=== PATIENT | male | born 1945 | race Caucasian/White ===

== ENCOUNTER 2018-01-24 08:01 | Emergency (ER) | payer MEDICARE, OTHER ==
[~2018-01-24 08:01] MED LIST: Adult Low Dose81 MG PO; DULO60 PO; LISI20 PO; OXYC30 PO
[2018-01-24] MEDS ORDERED: MINO100 PO (15:38)
== END 2018-01-24 08:39 | disposition left against medical advice (07) ==
LOC: ER 08:01
DX: Z53.21 Procedure and treatment not carried out due to patient leaving prior to being seen by health care provider (principal)

== ENCOUNTER 2018-01-24 12:24 | Emergency (ER) | payer MEDICARE, OTHER ==
[~2018-01-24] VITALS: Ht 175.3 cm; Wt 94.8 kg
[2018-01-24 14:52] LABS: BASOPHILS ABSOLUTE AUTO 0.02 K/mm3 (0.00-0.23); BASOPHILS PERCENT AUTO 0 % (0-2); EOSINOPHILS PERCENT AUTO 0 % (0-6); Hematocrit 40.3 % (37.0-53.0); IMMATURE GRAN ABSOLUTE AUTO 0.05 K/mm3 (0.00-0.10); IMMATURE GRAN PERCENT AUTO 0 % (0-1); LYMPHOCYTES ABSOLUTE AUTO 1.05 K/mm3 (0.84-5.20); LYMPHOCYTES PERCENT AUTO 8 % (21-46); MONOCYTES ABSOLUTE AUTO 0.93 K/mm3 (0.16-1.47); MONOCYTES PERCENT AUTO 7 % (4-13); Mean Corpuscular HGB 27.1 pg (26.0-34.0); Mean Corpuscular HGB Conc 32.3 g/dL (31.5-36.5); Mean Corpuscular Volume 84 fL (80-100); Mean Platelet Volume 9.6 fL (9.1-12.4); NEUTROPHILS ABSOLUTE AUTO 10.48 K/mm3 (1.96-9.15); NEUTROPHILS PERCENT AUTO 84 % (41-73); Platelet Count 310 K/mm3 (150-400); RDW Coefficient Variation 14.3 % (11.7-14.2); RDW Standard Deviation 43.8 fL (35.1-46.3); White Blood Cell Count 12.53 K/mm3 (4.00-11.30)
[2018-01-24 15:09] LABS: Alanine Aminotransfer (ALT/SGP 17 U/L (12-78); Albumin, Blood 3.9 g/dL (3.4-5.0); Albumin/Globulin Ratio 0.8 (0.8-1.8); Alk Phos 82 U/L (50-136); Anion Gap 8 mmol/L (6-16); Aspartate Aminotrans (AST/SGOT 16 U/L (12-37); Bilirubin, Total 0.8 mg/dL (0.1-1.0); Blood Urea Nitrogen 14 mg/dL (8-24); Bun/Creatinine Ratio 19.3 (12.0-20.0); CO2, Blood 27 mmol/L (21-32); Calcium, Blood 9.1 mg/dL (8.5-10.1); Chloride, Blood 99 mmol/L (98-108); Creatinine, Blood 0.73 mg/dL (0.60-1.20); Globulin, Blood 4.9 g/dL (2.2-4.0); Glomerular Filtration Rate >60 (60-); Glucose, Blood 115 mg/dL (70-99); Potassium, Blood 3.6 mmol/L (3.5-5.5); Sodium, Blood 134 mmol/L (136-145); Total Protein, Blood 8.8 g/dL (6.4-8.2)
[2018-01-24] MEDS ORDERED: MINO100 PO (15:38)
== END 2018-01-24 16:39 | disposition home or self-care (01) ==
LOC: ER 12:24
PROVIDERS: Emergency Medicine
DX: L03.113 Cellulitis of right upper limb (principal); I89.1 Lymphangitis; G89.29 Other chronic pain; I10 Essential (primary) hypertension; Z79.899 Other long term (current) drug therapy; Z79.82 Long term (current) use of aspirin; Z87.891 Personal history of nicotine dependence
CPT/HCPCS: 72040; 72220; 73100; 73110; 80053; 85025; 96365; 99283; J3370; J7030; J7050

== ENCOUNTER 2018-01-24 23:42 | Emergency (ER) | payer MEDICARE, OTHER ==
[~2018-01-24] VITALS: Ht 175.3 cm; Wt 90.7 kg
[~2018-01-24 23:42] MED LIST changes: +MINO100 PO
== END 2018-01-25 01:26 | disposition home or self-care (01) ==
LOC: ER 23:42
DX: L03.113 Cellulitis of right upper limb (principal); I10 Essential (primary) hypertension; Z79.899 Other long term (current) drug therapy; Z79.82 Long term (current) use of aspirin
CPT/HCPCS: 96365; 99282; J3370

== ENCOUNTER 2018-01-25 00:31 | Day surgery (SDC) | payer MEDICARE, OTHER | END 2018-01-25 14:27 | disposition home or self-care (01) | LOC: ATC 00:31 | DX: L03.113 Cellulitis of right upper limb (principal) | CPT/HCPCS: 96365; 99282; J3370 ==

== ENCOUNTER 2021-09-29 08:00 | Day surgery (SDC) | payer MEDICARE, OTHER ==
[~2021-09-29] VITALS: Ht 170.2 cm; Wt 68.0 kg
[~2021-09-29 08:00] MED LIST changes: +METO25 PO; +MULVITA PO; +NITR.4SL SL; +OXYC30ER
--- NOTE | 2021-09-29 18:22 | NUR ---
SHIFT SUMMARY PT A&OX4, VSS, S/P R TKA, AQUACEL CDI, POLAR LACHO ON. PAIN TREATED PER EMAR. SANTOS PO. AWAITING POST-OP VOID. WILL REPORT TO ONCOMING NOC DREAD.
[2021-09-29] MEDS ORDERED: OXYC10TA19 PO (19:55)
[2021-09-29] MEDS ORDERED: PRAV20 PO (21:49)
[2021-09-30 05:03] LABS: BASOPHILS ABSOLUTE AUTO 0.02 K/mm3 (0.00-0.23); BASOPHILS PERCENT AUTO 0 % (0-2); EOSINOPHILS ABSOLUTE AUTO 0.01 K/mm3 (0.00-0.68); EOSINOPHILS PERCENT AUTO 0 % (0-6); Hematocrit 28.3 % (37.0-53.0); Hemoglobin 8.9 g/dL (13.5-17.5); IMMATURE GRAN ABSOLUTE AUTO 0.13 K/mm3 (0.00-0.10); IMMATURE GRAN PERCENT AUTO 1 % (0-1); LYMPHOCYTES PERCENT AUTO 9 % (21-46); MONOCYTES ABSOLUTE AUTO 1.09 K/mm3 (0.16-1.47); MONOCYTES PERCENT AUTO 7 % (4-13); Mean Corpuscular HGB 27.1 pg (26.0-34.0); Mean Corpuscular HGB Conc 31.4 g/dL (31.5-36.5); Mean Corpuscular Volume 86 fL (80-100); Mean Platelet Volume 9.4 fL (9.1-12.4); NEUTROPHILS ABSOLUTE AUTO 12.56 K/mm3 (1.96-9.15); NEUTROPHILS PERCENT AUTO 83 % (41-73); Platelet Count 488 K/mm3 (150-400); RDW Coefficient Variation 13.5 % (11.7-14.2); RDW Standard Deviation 42.2 fL (35.1-46.3); Red Blood Cell Count 3.29 M/mm3 (4.30-5.90); White Blood Cell Count 15.11 K/mm3 (4.00-11.30)
[2021-09-30 05:58] LABS: Bun/Creatinine Ratio 24.6 (12.0-20.0); Calcium, Blood 8.5 mg/dL (8.5-10.1); Creatinine, Blood 1.3 mg/dL (0.60-1.20); Magnesium, Blood 1.7 mg/dL (1.6-2.4); Potassium, Blood 4.8 mmol/L (3.5-5.5)
--- NOTE | 2021-09-30 06:20 | NUR ---
SHIFT SUMMARY INITIALLY, PT WAS UPSET ABOUT PAIN MANAGEMENT HE TAKES HIGH DOSE OF SCHEDULED OXYCODONE & IS ON A PAIN CONTRACT. DR CHOI CALLED & NEW ORDERS RECEIVED. UNFORTUNATLY DUE TO SPINAL LASTING, PT HAS NOT BEEN UP TO AMBULATE. FIRST ATTEMPT AROUND 2100, PT's SURGICAL LEG WAS UNABLE TO BEAR WEIGHT WITHOUT BUCKLING. DURING ASSESSMENTS AROUND 1500, PT STILL HAD NUMBNESS & "LACK OF SENSATION" FROM ANKLE DOWN. SHORTLY AGO, PT WAS TRANSFERRED TO CHAIR BUT STILL DID POORLY DUE TO FEELING IF HIS SURGICAL LEG WAS STILL HEAVY, STIFF, & ANKLE/FOOT AREA STILL NUMB. VSS.
[2021-09-30] MEDS ORDERED: OXYC15ER PO (13:56)
--- NOTE | 2021-09-30 16:19 | NUR ---
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 IV DC'D.
== END 2021-09-30 15:01 | disposition home or self-care (01) ==
LOC: ORSCMMR 08:00 → ORD 09:30 → ORSCMMR 09:30 → SURS 15:28 → ORSCMMR 09-30 15:01
PROVIDERS: Orthopaedic Surgery
PROC: 0SRC0JA Replacement of Right Knee Joint with Synthetic Substitute, Uncemented, Open Approach (ICD-10-PCS; principal; 2021-09-29 10:30)
PROC: 8E0Y0CZ Robotic Assisted Procedure of Lower Extremity, Open Approach (ICD-10-PCS; principal; 2021-09-29 10:30)
DX: M17.11 Unilateral primary osteoarthritis, right knee (principal); I10 Essential (primary) hypertension; Z87.891 Personal history of nicotine dependence; Z79.899 Other long term (current) drug therapy; I50.9 Heart failure, unspecified
CPT/HCPCS: 27447; S2900; 36415; 73560-RT; 80048; 83735; 85025; 97110; 97116; 97162; A9270; C1713; C1776; J0171; J0690; J0735; J1100; J1885; J2250; J2405; J2704; J2795; J3010; J7120

== ENCOUNTER 2022-02-23 08:34 | Day surgery (SDC) | payer MEDICARE, OTHER ==
[2022-02-11 16:16] LABS: BASOPHILS ABSOLUTE AUTO 0.02 K/mm3 (0.00-0.23); BASOPHILS PERCENT AUTO 0 % (0-2); EOSINOPHILS PERCENT AUTO 2 % (0-6); Hematocrit 39.3 % (37.0-53.0); Hemoglobin 12.5 g/dL (13.5-17.5); IMMATURE GRAN ABSOLUTE AUTO 0.01 K/mm3 (0.00-0.10); IMMATURE GRAN PERCENT AUTO 0 % (0-1); LYMPHOCYTES ABSOLUTE AUTO 1.96 K/mm3 (0.84-5.20); LYMPHOCYTES PERCENT AUTO 29 % (21-46); MONOCYTES ABSOLUTE AUTO 0.42 K/mm3 (0.16-1.47); MONOCYTES PERCENT AUTO 6 % (4-13); Mean Corpuscular HGB 26.8 pg (26.0-34.0); Mean Corpuscular HGB Conc 31.8 g/dL (31.5-36.5); Mean Corpuscular Volume 84 fL (80-100); Mean Platelet Volume 10.4 fL (9.1-12.4); NEUTROPHILS ABSOLUTE AUTO 4.37 K/mm3 (1.96-9.15); NEUTROPHILS PERCENT AUTO 64 % (41-73); Platelet Count 265 K/mm3 (150-400); RDW Coefficient Variation 13.9 % (11.7-14.2); RDW Standard Deviation 42.9 fL (35.1-46.3); Red Blood Cell Count 4.66 M/mm3 (4.30-5.90); White Blood Cell Count 6.88 K/mm3 (4.00-11.30)
[2022-02-11 18:04] LABS: Anion Gap 4 mmol/L (6-16); Blood Urea Nitrogen 21 mg/dL (8-24); Bun/Creatinine Ratio 23.3 (12.0-20.0); CO2, Blood 28 mmol/L (21-32); Calcium, Blood 9.4 mg/dL (8.5-10.1); Chloride, Blood 104 mmol/L (98-108); Glomerular Filtration Rate >60 (60-); Glucose, Blood 115 mg/dL (70-99); Potassium, Blood 4.3 mmol/L (3.5-5.5); Sodium, Blood 136 mmol/L (136-145)
[~2022-02-23] VITALS: Ht 170.2 cm; Wt 73.4 kg
[~2022-02-23 08:34] MED LIST changes: +ASPI81CH PO; +OXYC10TA19 PO; +OXYC15ER PO; +PRAV20 PO
--- NOTE | 2022-02-23 09:03 | NUR ---
Ambulatory in Day Surgery WITH WALKER AND CANE, WILL PLACE NAME BANDS ON WALKER AND CANE. History, Chart, Medications and Allergies reviewed before start of procedure.Lungs clear T/O to Auscultation. Patient confirms NPO status and agrees with scheduled surgery. Pre-Op teaching done. Pt verbalizes understanding.
--- NOTE | 2022-02-23 18:14 | NUR ---
SHIFT SUMMARY: PT ARRIVED TO THE UNIT AROUND 1440. COMPLAINING OF PAIN >10 TO LOWER BACK AND LLE. PAIN CONTINUES EVEN AFTER PO AND IV PAIN MEDICATION. WORKED WITH THERAPY. NO DRAINAGE TO LK. EATING, DRINKING, VOIDING.
--- NOTE | 2022-02-24 05:05 | NUR ---
SHIFT SUMMARY NO ACUTE CHANGES OVERNIGHT. PT REPORTS CHRONIC BACK PAIN AND L KNEE PAIN. POD1 L TKA WITH DR. CHOI. PT REPORTS CHRONING N/T, NOTHING MORE THAN UNSUAL. ENC USE OF CRYO. PAIN MANAGED WITH DILAUDID, YVROSE, TYLENOL, AND OXYCOTIN. PT REPORT MOD TO SEVERE PAIN BUT APPEARS TO BE COMFORTABLE OVERNIGHT. L KNEE [employer]GICAL INC SITE AND DRESSING APPEARS TO BE CDI. SALINE LOCK. MILDY HYPOTENSIVE THIS MORNING BUT ASYMPTOMATIC. PLAN FOR PT TO WORK WITH THERAPY BEFORE DISCHARGE. WILL PROVIDE REPORT TO ONCOMING NURSE.
[2022-02-24 05:09] LABS: BASOPHILS ABSOLUTE AUTO 0.01 K/mm3 (0.00-0.23); BASOPHILS PERCENT AUTO 0 % (0-2); EOSINOPHILS ABSOLUTE AUTO 0.01 K/mm3 (0.00-0.68); EOSINOPHILS PERCENT AUTO 0 % (0-6); Hematocrit 30.3 % (37.0-53.0); Hemoglobin 9.7 g/dL (13.5-17.5); IMMATURE GRAN ABSOLUTE AUTO 0.06 K/mm3 (0.00-0.10); IMMATURE GRAN PERCENT AUTO 0 % (0-1); LYMPHOCYTES ABSOLUTE AUTO 1.04 K/mm3 (0.84-5.20); LYMPHOCYTES PERCENT AUTO 7 % (21-46); MONOCYTES ABSOLUTE AUTO 0.94 K/mm3 (0.16-1.47); MONOCYTES PERCENT AUTO 7 % (4-13); Mean Corpuscular HGB 27.7 pg (26.0-34.0); Mean Corpuscular Volume 87 fL (80-100); NEUTROPHILS ABSOLUTE AUTO 11.95 K/mm3 (1.96-9.15); NEUTROPHILS PERCENT AUTO 85 % (41-73); Platelet Count 220 K/mm3 (150-400); RDW Coefficient Variation 14.1 % (11.7-14.2); RDW Standard Deviation 44.6 fL (35.1-46.3); White Blood Cell Count 14.01 K/mm3 (4.00-11.30)
[2022-02-24 05:54] LABS: Bun/Creatinine Ratio 22.6 (12.0-20.0); Calcium, Blood 8.4 mg/dL (8.5-10.1); Creatinine, Blood 1.33 mg/dL (0.60-1.20); Potassium, Blood 5.6 mmol/L (3.5-5.5)
[2022-02-24] MEDS ORDERED: ACET500 PO (09:27)
--- NOTE | 2022-02-24 10:00 | NUR ---
DISCUSSED DC EDUCATION. AWAITING RIDE.
--- NOTE | 2022-02-24 12:04 | NUR ---
DISCHARGE PT HAS CLEARED THERAPY. PAIN POORLY CONTROLLED; BASELINE PT TAKES NARCOTICS ROUTINELY. PT FEELS OK w/ DC DISPITE POOR PAIN MANAGEMENT. EATING, DRINKING, & VOIDING WELL. SCRIPT & POLAR PACK SENT w/ PT. ESCORTED OUT VIA W/C.
== END 2022-02-24 11:50 | disposition home or self-care (01) ==
LOC: ORSCMMR 08:34 → EDSTATUS 10:45 → ORSCMMR 10:45 → EDSTATUS 11:00 → ORSCMMR 11:00 → SURS 14:28 → ORSCMMR 02-24 11:50
PROVIDERS: Orthopaedic Surgery
PROC: 0SRD0JA Replacement of Left Knee Joint with Synthetic Substitute, Uncemented, Open Approach (ICD-10-PCS; principal; 2022-02-23 10:45)
DX: M17.12 Unilateral primary osteoarthritis, left knee (principal); Z96.651 Presence of right artificial knee joint; I10 Essential (primary) hypertension; I50.9 Heart failure, unspecified; I27.20 Pulmonary hypertension, unspecified; E78.5 Hyperlipidemia, unspecified; Z87.891 Personal history of nicotine dependence; Z79.899 Other long term (current) drug therapy; Z79.82 Long term (current) use of aspirin
CPT/HCPCS: 36415; 73560-LT; 80048; 83735; 85025; 97110; 97116; 97162; A9270; C1713; C1776; J0171; J0690; J0735; J1170; J1885; J2250; J2370; J2704; J2795; J3010; J7120

== ENCOUNTER 2025-01-09 12:34 | Inpatient (IN) | payer MEDICARE, OTHER ==
[~2025-01-09] VITALS: Ht 175.3 cm; Wt 67.9 kg
[~2025-01-09 12:34] MED LIST changes: +ACET500 PO
[2025-01-09] MEDS ORDERED: HYDROmorphone HCl/Pf 1MG SYR IV ONE (13:45)
[2025-01-09] MEDS ORDERED: Ondansetron HCl 2 MG / ML 2ML Vial IV ONE (13:45)
[2025-01-09 14:28] LABS: BASOPHILS ABSOLUTE AUTO 0.03 K/mm3 (0.00-0.23); BASOPHILS PERCENT AUTO 0 % (0-2); EOSINOPHILS ABSOLUTE AUTO 0.04 K/mm3 (0.00-0.68); EOSINOPHILS PERCENT AUTO 0 % (0-6); Hematocrit 36.4 % (37.0-53.0); Hemoglobin 11.9 g/dL (13.5-17.5); IMMATURE GRAN ABSOLUTE AUTO 0.06 K/mm3 (0.00-0.10); IMMATURE GRAN PERCENT AUTO 1 % (0-1); LYMPHOCYTES ABSOLUTE AUTO 0.67 K/mm3 (0.84-5.20); LYMPHOCYTES PERCENT AUTO 6 % (21-46); MONOCYTES ABSOLUTE AUTO 0.76 K/mm3 (0.16-1.47); MONOCYTES PERCENT AUTO 7 % (4-13); Mean Corpuscular HGB 28.9 pg (26.0-34.0); Mean Corpuscular HGB Conc 32.7 g/dL (31.5-36.5); Mean Corpuscular Volume 88 fL (80-100); NEUTROPHILS ABSOLUTE AUTO 8.88 K/mm3 (1.96-9.15); NEUTROPHILS PERCENT AUTO 85 % (41-73); RDW Coefficient Variation 13.2 % (11.7-14.2); RDW Standard Deviation 42.7 fL (35.1-46.3); Red Blood Cell Count 4.12 M/mm3 (4.30-5.90); White Blood Cell Count 10.44 K/mm3 (4.00-11.30)
[2025-01-09 14:38] LABS: Albumin, Blood 3.3 g/dL (3.4-5.0); Albumin/Globulin Ratio 0.6 (0.8-1.8); Bilirubin, Total 0.9 mg/dL (0.1-1.0); Bun/Creatinine Ratio 28.6 (12.0-20.0); Calcium, Blood 9.7 mg/dL (8.5-10.1); Creatinine, Blood 1.12 mg/dL (0.60-1.20); Globulin, Blood 5.1 g/dL (2.2-4.0); Potassium, Blood 4.2 mmol/L (3.5-5.5); Total Protein, Blood 8.4 g/dL (6.4-8.2)
[2025-01-09 14:57] LABS: Mean Platelet Volume 10.3 fL (9.1-12.4); Platelet Count 305 K/mm3 (150-400)
[2025-01-09] MEDS ORDERED: FLU VACC TS2024-25(6MOS UP)/PF 45 MCG/0.5 ML SYRINGE IM SCH (16:25)
[2025-01-09] MEDS ORDERED: OxyCODONE HCL 30 MG TAB (Immediate Release) PO PRN (16:40)
[2025-01-09] MEDS ORDERED: Morphine Sulfate 4 MG/1 ML Injection IV PRN (16:40)
[2025-01-09] MEDS ORDERED: CeFAZolin Sodium 2,000 MG in NS 100 ML IV SCH (16:45)
[2025-01-09] MEDS ORDERED: Tranexamic Acid 100 ML IV SCH (16:45)
[2025-01-09] MEDS ORDERED: Docusate Sodium/Senna 1 Tab PO PRN (16:50)
[2025-01-09 19:24] VITALS: BP 157/81
--- NOTE | 2025-01-09 20:00 | NUR ---
ARRIVAL TO SURGICAL UNIT ROOM 212 FROM ER AT 1848. PT ARRIVED TO UNIT VIA GURNEY, TRANSFERED TO HOSPITAL BED VIA SLIDER SHEET. PT VERBALIZED PAIN 10/10 IN LEFT SIDE NECK, SHOULDER, WRIST, HIP AND LEG. PT FOLLOWS DIRECTIONS AND VERBALLY RESPONSIVE. ORIENTED TO ROOM AND CALL LIGHT.
[2025-01-10] VITALS (22 sets, daily range): BP systolic 97–147; BP diastolic 54–82
[2025-01-10] MEDS ORDERED: Acetaminophen 500 MG Tab PO SCH
--- NOTE | 2025-01-10 03:39 | NUR ---
CALL TO HOSPITALIST. CALL PLACED REGARDING FLUID ORDERS AND ORDERS FOR SCDS PT TOO PAINFUL FOR NANY MELLO WITH FX. NEW ORDERS RECEIVED FOR NS 75ML X1 1000ML BAG AND SCDS.
[2025-01-10] MEDS ORDERED: NS 1,000 ML IV SCH (03:40)
[2025-01-10 05:47] LABS: BASOPHILS ABSOLUTE AUTO 0.03 K/mm3 (0.00-0.23); BASOPHILS PERCENT AUTO 0 % (0-2); EOSINOPHILS ABSOLUTE AUTO 0.23 K/mm3 (0.00-0.68); EOSINOPHILS PERCENT AUTO 3 % (0-6); Hematocrit 33.9 % (37.0-53.0); IMMATURE GRAN ABSOLUTE AUTO 0.06 K/mm3 (0.00-0.10); IMMATURE GRAN PERCENT AUTO 1 % (0-1); LYMPHOCYTES ABSOLUTE AUTO 1.25 K/mm3 (0.84-5.20); LYMPHOCYTES PERCENT AUTO 14 % (21-46); MONOCYTES PERCENT AUTO 9 % (4-13); Mean Corpuscular HGB 28.6 pg (26.0-34.0); Mean Corpuscular HGB Conc 32.4 g/dL (31.5-36.5); Mean Corpuscular Volume 88 fL (80-100); NEUTROPHILS ABSOLUTE AUTO 6.59 K/mm3 (1.96-9.15); NEUTROPHILS PERCENT AUTO 74 % (41-73); Platelet Count 282 K/mm3 (150-400); RDW Coefficient Variation 13.6 % (11.7-14.2); RDW Standard Deviation 43.9 fL (35.1-46.3); Red Blood Cell Count 3.85 M/mm3 (4.30-5.90); White Blood Cell Count 8.96 K/mm3 (4.00-11.30)
--- NOTE | 2025-01-10 06:01 | NUR ---
SHIFT SUMMARY NOC. PT A/O X3-4, MINIMALLY FORGETFUL THIS SHIFT. BED ALARM SET FOR SAFETY. PT ADMIT POST FALL AND LEFT FEMORAL FRACTURE. PT PAINFUL UPON ARRIVAL REPORTED RELIEF WITH MORPHINE. PT RESTED WITH EYES CLOSED. AT MORNING VITALS PT STATED DID NOT SLEEP WELL AND WAS PAINFUL. PT VOIDING AND NPO SINCE 0000. PT UPSET THIS MORNING WANTING ICE CHIPS, EDUCATION PROVIDED ON NPO STATUS, PROVIDED ORAL CARE. CALL LIGHT IN REACH. WILL GIVE REPORT TO ONCOMING NURSE.
[2025-01-10 06:28] LABS: Magnesium, Blood 2.1 mg/dL (1.6-2.4); Phosphorus, Blood 3.2 mg/dL (2.5-4.9)
[2025-01-10] MEDS ORDERED: Enoxaparin 40 MG/0.4 ML SYR SC SCH (09:00)
[2025-01-10] MEDS ORDERED: Lisinopril 20 MG Tab PO SCH (09:00)
[2025-01-10] MEDS ORDERED: Aspirin 81 MG Chew PO SCH (09:00)
[2025-01-10] MEDS ORDERED: Multivitamins 1 Tab PO SCH (09:00)
[2025-01-10] MEDS ORDERED: OxyCODONE HCL 30 MG TAB (Immediate Release) PO PRN (09:30)
[2025-01-10] MEDS ORDERED: Morphine Sulfate 4 MG/1 ML Injection IV PRN (09:30)
[2025-01-10] MEDS ORDERED: propofoL 20 ML IV ONE (11:26)
[2025-01-10] MEDS ORDERED: FentaNYL Citrate 50 MCG/ML 2 ML Injection ONE ×3 (11:26→14:43)
[2025-01-10] MEDS ORDERED: Lidocaine HCl 2% 20 ML MDV ONE (11:27)
[2025-01-10] MEDS ORDERED: SuccINYLCHOLINE Chloride 100 MG/5 ML 5MLSYR ONE (11:27)
[2025-01-10] MEDS ORDERED: CeFAZolin Sodium 2,000 MG in NS 100 ML IV SCH ×2 (11:40→20:30)
[2025-01-10] MEDS ORDERED: Lactated Ringer's 1,000 ML IV SCH (11:40)
[2025-01-10] MEDS ORDERED: CeFAZolin Sodium 2,000 MG VIAL ONE (11:46)
[2025-01-10] MEDS ORDERED: Ropivacaine 0.5% HCL/PF 5 MG/ML 30ML Vial ONE (11:54)
[2025-01-10] MEDS ORDERED: Tranexamic Acid 100 ML IV SCH (12:01)
[2025-01-10] MEDS ORDERED: Phenylephrine HCl 100 MCG/ML-NS 10MLSYR (1MG/10ML) ONE ×2 (12:42→12:54)
[2025-01-10] MEDS ORDERED: Dexamethasone Sod Phos 10 MG/ML 1ML VIAL ONE (13:03)
[2025-01-10] MEDS ORDERED: Ondansetron HCl 2 MG / ML 2ML Vial ONE (13:03)
--- NOTE | 2025-01-10 13:14 | NUR ---
01/10/25 1314 Amena,Hannah FASCIA ILIACA BLOCK COMPLETED BY UPON ENTRY TO OR, AFTER PATIENT WAS INTUBATED AND SEDATED.
[2025-01-10] MEDS ORDERED: FentaNYL Citrate 50 MCG/ML 2 ML Injection IV PRN (13:15)
[2025-01-10] MEDS ORDERED: Ondansetron HCl 2 MG / ML 2ML Vial IV PRN (13:15)
[2025-01-10] MEDS ORDERED: HYDROmorphone HCl 0.5 MG/0.5 ML SYR IV PRN ×2 (13:15)
--- NOTE | 2025-01-10 15:33 | NUR ---
POST OP RETURN TO SURGICAL UNIT VIA HOSPITAL BED, ALERT & PLEASANT. ASKING FOR ICE CHIPS. LUNGS CLEAR BUT DIM IN BASES. L HIP w/ AQUACEL; NO DRNG OR BRUISING. THIGH SOFT. PPP.
--- NOTE | 2025-01-10 17:54 | NUR ---
SHIFT SUMMARY S/P L VINNIE HIP PT BACK FROM PROCEDURE, DRESSING CDI. PAIN MANAGED PER EMAR. TOLERATING DIET AND PO. VOIDING WITH URINAL. CURRENTLY RESTING IN BED. ON ROOM AIR, DENIES SOB. PLAN WILL BE TO WORK WITH THERAPY IN THE AM.
[2025-01-11 00:13] VITALS: BP 105/64
--- NOTE | 2025-01-11 01:40 | NUR ---
REPORT GIVEN TO ANA LAURA Pineda RN AT 0110. PT A/O X4 THIS SHIFT, NOT YET OOB POST OP. PT HAVING INCONT/CONT VOIDS WITH URINAL. PT DISLIKES HIP PRECAUTIONS WEDGE, READJUSTED WEDGE AND PT TOLERATES BETTER. AQUACEL ON LEFT HIP C/D/I. PT MEDICATED FOR PAIN OXY 30MG Q 4HRS. CONT BIOX IN PLACE. CALL LIGHT IN REACH, BED ALARM SET FOR SAFETY PT INTERMITTENTLY FORGETFUL.
[2025-01-11 04:03] VITALS: BP 117/64
--- NOTE | 2025-01-11 06:17 | NUR ---
NOC SUMMARY- PT PAIN MANGED WELL. PT HAS BEEN RESTING FOR MOST OF SHIFT. PT IS EATING AND DRINKING. PT VOIDING. DRESSING C/D/I. CALL LIGHT IN REACH.
[2025-01-11 07:10] VITALS: BP 126/74
[2025-01-11] MEDS ORDERED: Enoxaparin 40 MG/0.4 ML SYR SC SCH (09:00)
[2025-01-11] MEDS ORDERED: Methyl Salicylate/Menth/Camph 57 GM TUBE TOP PRN (13:50)
[2025-01-11 15:01] VITALS: BP 113/60
[2025-01-11 19:53] VITALS: BP 118/80
[2025-01-12 03:39] VITALS: BP 126/72
--- NOTE | 2025-01-12 05:09 | NUR ---
SHIFT SUMMARY POD 1 S/P LEFT VINNIE HIP. POSTERIOR HIP PRECAUTIONS MAINTAINED. DRESSING CDI. POLAR PACK TO LEFT HIP TOLERATED. PT UP IN CHAIR T/O SHIFT REQUESTED FOR COMFORT. LEFT HIP PAIN MANAGED PER EMAR. PT REPORTS INCREASED PAIN IN LEFT SHOULDER TONIGHT. IS VOIDING. SANTOS PO INTAKE. PLAN TO WORK WITH THERAPY TODAY. PT A/OX4 WITH VSS AND ABLE TO MAKE NEEDS KNOWN. WILL GIVE REPORT TO ONCOMING RN.
[2025-01-12 05:16] LABS: BASOPHILS ABSOLUTE AUTO 0.02 K/mm3 (0.00-0.23); BASOPHILS PERCENT AUTO 0 % (0-2); EOSINOPHILS ABSOLUTE AUTO 0.16 K/mm3 (0.00-0.68); EOSINOPHILS PERCENT AUTO 2 % (0-6); Hematocrit 29.4 % (37.0-53.0); Hemoglobin 9.4 g/dL (13.5-17.5); IMMATURE GRAN ABSOLUTE AUTO 0.06 K/mm3 (0.00-0.10); IMMATURE GRAN PERCENT AUTO 1 % (0-1); LYMPHOCYTES ABSOLUTE AUTO 1.91 K/mm3 (0.84-5.20); LYMPHOCYTES PERCENT AUTO 19 % (21-46); MONOCYTES ABSOLUTE AUTO 0.82 K/mm3 (0.16-1.47); MONOCYTES PERCENT AUTO 8 % (4-13); Mean Corpuscular HGB 28.2 pg (26.0-34.0); Mean Corpuscular Volume 88 fL (80-100); Mean Platelet Volume 9.9 fL (9.1-12.4); NEUTROPHILS ABSOLUTE AUTO 6.97 K/mm3 (1.96-9.15); NEUTROPHILS PERCENT AUTO 70 % (41-73); Platelet Count 279 K/mm3 (150-400); RDW Coefficient Variation 13.6 % (11.7-14.2); RDW Standard Deviation 44.5 fL (35.1-46.3); Red Blood Cell Count 3.33 M/mm3 (4.30-5.90); White Blood Cell Count 9.94 K/mm3 (4.00-11.30)
[2025-01-12 05:42] LABS: Albumin, Blood 2.3 g/dL (3.4-5.0); Anion Gap 9 mmol/L (3-11); Blood Urea Nitrogen 43 mg/dL (8-24); Bun/Creatinine Ratio 40.6 (12.0-20.0); CO2, Blood 25 mmol/L (21-32); Calcium, Blood 7.9 mg/dL (8.5-10.1); Chloride, Blood 105 mmol/L (98-108); Creatinine, Blood 1.06 mg/dL (0.60-1.20); Glomerular Filtration Rate 71 (60-); Glucose, Blood 119 mg/dL (70-99); Phosphorus, Blood 1.8 mg/dL (2.5-4.9); Potassium, Blood 4.5 mmol/L (3.5-5.5); Sodium, Blood 134 mmol/L (136-145)
[2025-01-12 07:41] VITALS: BP 113/67
[2025-01-12] MEDS ORDERED: DOCUSATE/SENNA PO (12:13)
--- NOTE | 2025-01-12 15:48 | NUR ---
DISCHARGE: PACKET PRINTED AND PT /PT FAMILY EDUCATED. IV DC'D WNL, TIP INTACT. THIS RN EDUCATED FAMILY ABOUT POSTERIOR HIP PRECAUTIONS. AND DEMONSTRATED. PT LEFT UNIT VIA WHEELCHAIR WITH FAMILY AND KIMBERLEY VERDE AT 1519
== END 2025-01-12 15:32 | disposition home health service (06) | DRG 522 ==
LOC: ER 12:34 → SURS 16:20
PROVIDERS: Emergency Medicine; Orthopaedic Surgery; ADMIT Family Medicine
PROC: 0SRS01A Replacement of Left Hip Joint, Femoral Surface with Metal Synthetic Substitute, Uncemented, Open Approach (ICD-10-PCS; principal; 2025-01-10 12:00)
DX: S72.012A Unspecified intracapsular fracture of left femur, initial encounter for closed fracture (principal); W10.8XXA Fall (on) (from) other stairs and steps, initial encounter; Y92.028 Other place in mobile home as the place of occurrence of the external cause; G89.29 Other chronic pain; M54.9 Dorsalgia, unspecified; I10 Essential (primary) hypertension; I25.10 Atherosclerotic heart disease of native coronary artery without angina pectoris; E78.5 Hyperlipidemia, unspecified; Z96.653 Presence of artificial knee joint, bilateral; Z79.891 Long term (current) use of opiate analgesic; Z79.82 Long term (current) use of aspirin
CPT/HCPCS: 36415; 72125; 72170; 72192; 73030; 73110; 73502; 73552; 80053; 80069; 83735; 84100; 85025; 93005; 93010; 94760; 94762; 96374; 96375; 97110; 97162; 97530; 99285-25; A9270; C1776; J0330; J0690; J1100; J1171; J1650; J2270; J2371; J2405; J2704; J2795; J3010; J7030; J7120